=== PATIENT | male | born 2000 | race Two or more races ===

== ENCOUNTER 2023-05-29 23:03 | Emergency (ER) | payer SELFPAY ==
[2023-05-29 23:14] VITALS: BP 176/59; PULSE 55; RESP 18; TEMP 36.8; O2SAT 99; BMI 21.1
[2023-05-29 23:48] LABS: Appearance Urine Clear; Color Urine Yellow; Glucose Urine UA Negative (Negative); Leukocyte Esterase Urine Negative (Negative); Nitrite Urine Negative (Negative); PH 5.5 (5.0-9.0); Specific Gravity - Urine >= 1.030 (1.005-1.025); Urine Blood Negative (Negative); Urine Ketones Trace mg/dL (Negative); Urine Protein Negative (Neg-Trace)
[2023-05-29 23:50] LABS: Bacteria Urine None Seen (None Seen); Hyaline Casts Urine 0-2 /LPF (0-2); RBC Urine 0-2 /HPF (0-2); Squamous Epithelial Cell Urine 0-2 /HPF (0-2); WBC Urine 0-5 /HPF (0-5)
--- NOTE | 2023-05-30 02:49 | ED.MALEGU ---
HPI - Male Genitourinary General Chief complaint: Urogenital-Male Stated complaint: General Medical Time Seen by Provider: 05/30/23 02:49 Source: patient Mode of arrival: ambulatory Limitations: no limitations History of Present Illness HPI Narrative: Patient complaining of pain in the penis after sex just prior to arrival now does not have any pain no swelling no penile discharge no hematuria Related Data Allergies Allergy/AdvReac Type Severity Reaction Status Date / Time No Known Allergies Allergy Verified 05/29/23 23:32 Review of Systems Review of Systems: Yes all other systems are reviewed and are negative [facility] Social History Social History Advance Directives: No Advance Directives Information Provided: No Physical Exam Vital Signs: Vital Signs: Last Vital Signs Temp 98.2 F 05/29/23 23:14 Pulse 55 05/29/23 23:14 Resp 18 05/29/23 23:14 BP 176/59 H 05/29/23 23:14 Pulse Ox 99 05/29/23 23:14 O2 Del Method Room Air 05/29/23 23:14 BMI result Body Mass Index 21.1 : Male General Exam: Yes normal external exam, No ecchymosis, No erythema, No hernia, No inguinal lymphadenopathy and No tenderness Penis: normal penis, uncircumcised and no ecchymosis Meatus: meatus normal Scrotum: scrotum normal Testes: Testes normal, epididymides normal and no testicular swelling Medical Decision Making Medical Decision Making MDM Narrative: Patient with history of mild pain in the penis after sex , normal exam discharge patient home Lab Data [facility] Lab Attestation statement: I reviewed the patient's lab results. Labs: Lab Results 05/29/23 Range/Units 23:42 Urine Color Yellow Urine Appearance Clear Urine pH 5.5 (5.0-9.0) Ur Specific [place] >= 1.030 H (1.005-1.025) Urine Protein Negative (Neg-Trace) mg/dL Urine Glucose (UA) Negative (Negative) mg/dL Urine Ketones Trace (Negative) mg/dL Urine Blood Negative (Negative) Urine Nitrite Negative (Negative) Ur Leukocyte Esterase Negative (Negative) Urine RBC 0-2 (0-2) /HPF Urine WBC 0-5 (0-5) /HPF Ur Squamous Epith Cells 0-2 (0-2) /HPF Urine Bacteria None Seen (None Seen) Hyaline Casts 0-2 (0-2) /LPF Discharge Plan Discharge Clinical Impression: Pain in penis Patient Disposition: Home, Self-Care Instructions: Contusion in Adults (ED) Additional Instructions: Take Tylenol/ibuprofen for pain if any Interventions: ED Discharge Assessment Last Done: 05/30/23 04:44 Discharge Date/Time: 05/30/23 04:45
--- NOTE | 2023-05-30 03:05 | PC.NURSE ---
Assumed care of pt. Report received from KATIUSKA Moran. Per MD Mari, plan for D/C, pending orders.
== END 2023-05-30 04:45 | disposition home or self-care (01) ==
PROVIDERS: Emergency Provider Internal Medicine
DX: N48.89 Other specified disorders of penis (principal)
CPT/HCPCS: 81001; 99282; 99283